=== PATIENT | female | born 1970 | race Caucasian/White ===

== ENCOUNTER 2016-09-07 12:03 | Emergency (ER) | payer MEDICAID ==
[~2016-09-07] VITALS: Ht 157.5 cm; Wt 77.1 kg
[~2016-09-07 12:03] MED LIST: MEDR10TA10 PO
[2016-09-07 12:11] VITALS: BP 126/71
[2016-09-07 12:30] LABS: KETONES,URINE Negative (NEGATIVE); LEUKOCYTE ESTERASE ,URINE Large (NEGATIVE)
[2016-09-07 12:31] LABS: ADD UA MICROSCOPIC YES
[2016-09-07 13:08] LABS: ADD URINE CULTURE YES
== END 2016-09-07 12:47 | disposition home or self-care (01) ==
LOC: ER 12:06
DX: N39.0 Urinary tract infection, site not specified (principal); Z90.710 Acquired absence of both cervix and uterus
CPT/HCPCS: 81001; 87086; 99284; A4606; Z7610; 81000-TC

== ENCOUNTER 2016-10-15 12:23 | Inpatient (IN) | payer MEDICAID ==
[~2016-10-15] VITALS: Ht 160 cm; Wt 81.7 kg
--- NOTE | 2016-10-15 12:24 | NUR ---
PT C/O LEFT LOWER ABD PAIN AND FEVER X 3 DAYS, ALSO C/O RIGHT EARACHE. TOOK MOTRIN WITH SOME RELIEF. PLACED ON MONITOR. VSS.
[2016-10-15] MEDS ORDERED: ONDANSETRON HCL/PF 4 MG/2 ML VIAL IVP ONE (13:00)
[2016-10-15] MEDS ORDERED: MORPHINE SULFATE INJ 2 MG/ML DISP.SYRIN IV ONE (13:00)
[2016-10-15] MEDS ORDERED: IV NS 0.9% 1,000 ML BAG IV ONE ×2 (13:00→15:00)
--- NOTE | 2016-10-15 13:00 | NUR ---
PT TAKEN TO CT
[2016-10-15 13:14] LABS: APPEARANCE,URINE Clear (CLEAR); BILIRUBIN,URINE Negative (NEGATIVE); BLOOD, URINE Large Ery/uL (NEGATIVE); COLOR,URINE Yellow (YELLOW); KETONES,URINE Negative (NEGATIVE); LEUKOCYTE ESTERASE ,URINE Negative (NEGATIVE); NITRITE, URINE Negative (NEGATIVE); PH,URINE 6.5 (5.0-8.0); PROTEIN,URINE Negative (NEGATIVE); UGLUCOSE Negative (NEGATIVE); UROBILINOGEN,URINE 0.2 EU/dL (0.2)
[2016-10-15 13:25] LABS: BASOPHILS % (AUTO) 0.3 % (0.0-2.0); EOSINOPHILS % (AUTO) 0.4 % (0.0-6.0); HEMATOCRIT 37 % (33-45); HEMOGLOBIN 12.6 g/dL (11.5-14.8); LYMPHOCYTES # (AUTO) 1.5 /CMM (0.8-4.8); LYMPHOCYTES % (AUTO) 17.9 % (20.0-44.0); MEAN CORPUSCULAR HEMOGLOBIN 29 PG (26.0-33.0); MEAN CORPUSCULAR HGB CONC 34 g/dl (31.0-36.0); MEAN CORPUSCULAR VOLUME 86 fL (82-100); MONOCYTES # (AUTO) 0.9 /CMM (0.1-1.30); MONOCYTES % (AUTO) 10.6 % (2.0-12.0); NEUTROPHILS # (AUTO) 6.1 /CMM (1.8-8.9); NEUTROPHILS % (AUTO) 70.8 % (43.0-81.0); PLATELET COUNT (AUTO) 209 /CMM (150-450); RDW COEFFICIENT OF VARIATION 12.9 (11.5-15.0); RED BLOOD CELL COUNT(AUTO) 4.34 MIL/uL (4.0-5.2); WHITE BLOOD COUNT (AUTO) 8.5 K/uL (4.3-11.0)
[2016-10-15 13:26] LABS: ALBUMIN 3.5 g/dL (3.4-5.0); BILIRUBIN,DIRECT 0.1 mg/dL (0.0-0.2); BILIRUBIN,TOTAL 0.4 mg/dL (0.2-1.0); CALCIUM, SERUM 8.9 mg/dL (8.5-10.1); CREATININE 0.5 mg/dL (0.6-1.3); POTASSIUM 3.9 mmol/L (3.5-5.1)
[2016-10-15] MEDS ORDERED: IV NS 0.9% 1,000 ML ONE ×2 (13:31→14:51)
[2016-10-15] MEDS ORDERED: ONDANSETRON HCL/PF 4 MG/2 ML VIAL ONE (13:31)
[2016-10-15] MEDS ORDERED: IV SET PRIMARY PUMP SET 1 EA INFUS.SET MC ONE ×3 (13:31→17:37)
[2016-10-15] MEDS ORDERED: MORPHINE SULFATE INJ 4 MG/ML DISP.SYRIN ONE (13:31)
[2016-10-15 13:37] LABS: LACTIC ACID 0.6 mmol/L (0.4-2.0)
[2016-10-15] MEDS ORDERED: IOHEXOL-300 100 ML VIAL IV ONE (13:38)
[2016-10-15] MEDS ORDERED: CT SWABBABLE VALVE TRANS SET 1 EA INFUS.SET MC ONE (13:38)
[2016-10-15] MEDS ORDERED: IV NS 0.9% 250 ML IV ONE ×2 (13:38→17:38)
--- NOTE | 2016-10-15 13:38 | NUR ---
RAC #18 IV ACCESS
[2016-10-15 13:44] LABS: ADD URINE CULTURE NO; BACTERIA,URINE Few /HPF (None Seen); SQUAMOUS EPITHELIAL CELL,UR Few /HPF (None Seen)
--- NOTE | 2016-10-15 13:55 | NUR ---
PT TAKEN TO CT VIA WHEELCHAIR
--- NOTE | 2016-10-15 14:42 | NUR ---
CALLED [facility] COORDIN[employer] SURGEON DR. WILLIS LEFT VOICEMAIL, AWAITING FOR CALL BACK.
[2016-10-15] MEDS ORDERED: IV NS 0.9% 500 ML IV ONE (14:51)
--- NOTE | 2016-10-15 14:56 | NUR ---
DR KINSEY ON THE PHONE WITH GENERAL SURGEON DR CARRILLO
[2016-10-15] MEDS ORDERED: PIPERACILLIN /TAZOBACTAM 3.375 G in IV D5W 50 ML IV ONE (15:00)
--- NOTE | 2016-10-15 15:03 | NUR ---
PAGED [employer] DEVELOPER PANEL DR. MARY LOU FAROOQ
--- NOTE | 2016-10-15 15:08 | NUR ---
DR KINSEY ON THE PHONE WITH OB MANI LITTLEJOHN
[2016-10-15] MEDS ORDERED: MAGNESIUM HYDROXIDE 30 ML UDC PO PRN (15:30)
[2016-10-15] MEDS ORDERED: MAG HYDROX/AL HYDROX/SIMETH 30 ML UDC PO PRN (15:30)
[2016-10-15] MEDS ORDERED: Z GUARD REMEDY 2 OZ OINT TP PRN (15:30)
[2016-10-15] MEDS ORDERED: ONDANSETRON HCL/PF 4 MG/2 ML VIAL IVP PRN (15:30)
--- NOTE | 2016-10-15 16:09 | NUR ---
GAVE REPORT TO ABIODUN DE LEON MEDSUR 205
--- NOTE | 2016-10-15 16:20 | NUR ---
WOODYARD CRANE OPERATOR MS NOTES: PT ALERT AND ORIENTED X4. BED IN LOW POSITION, CALL LIGHT IN REACH. PT C/O HEADACHE PAIN 01/28. PT SITTING UP AND EATING DINNER. PAIN MEDICATION GIVEN : NORCO 5/325MG 1 TAB . SKIN IS INTACT. PT AMBULATORY. PT SHOWS NO SIGNS AND SYMPTOMS OF SOB AND DISTRESS. DR. BARRETO AWARE OF ADMISSION.
[2016-10-15] MEDS: HYDROCODONE/APAP 5/325MG 1 EACH TABLET PO PRN (16:44)
[2016-10-15] MEDS ORDERED: PIPERACILLIN /TAZOBACTAM 3.375 G in IV D5W 50 ML IV SCH (17:00)
[2016-10-15 17:31] VITALS: BP 144/95
[2016-10-15] MEDS ORDERED: SECONDARY IV SET 1 EA INFUS.SET MC ONE (17:37)
[2016-10-15] MEDS: PIPERACILLIN /TAZOBACTAM 3.375 G in IV D5W 50 ML IV SCH ×2 (17:43→23:43)
--- NOTE | 2016-10-15 19:04 | NUR ---
ms rn closing notes All needs provided, attended, and anticipated. No SOB or distress noted. Kept patient clean and comfortable in bed, call light with in patient reach. Endorsed to next shift RN to continue care. Will continue to monitor accordingly.
--- NOTE | 2016-10-15 19:45 | NUR ---
MS RN NOTE: PATIENT RESTING IN BED, NO ACUTE DISTRESS NOTED. BREATHING EVEN AND UNLABORED, NO SOB NOTED. IV TO RAC IN PLACE. BED LOCKED AND IN LOWEST POSITION, CALL LIGHT IN REACH. WILL CONTINUE TO MONITOR.
[2016-10-15 20:00] VITALS: BP 108/73
[2016-10-15] MEDS ORDERED: ZOLPIDEM TARTRATE 5 MG TABLET PO PRN (22:00)
[2016-10-15] MEDS: ACETAMINOPHEN 325 MG TABLET PO PRN (23:46)
--- NOTE | 2016-10-16 03:00 | NUR ---
MS RN NOTE: PATIENT SLEEPING IN BED, NO ACUTE DISTRESS NOTED. BREATHING EVEN AND UNLABORED, NO SOB NOTED. BED LOCKED AND IN LOWEST POSITION, CALL LIGHT IN REACH, WILL CONTINUE TO MONITOR.
[2016-10-16] MEDS: PIPERACILLIN /TAZOBACTAM 3.375 G in IV D5W 50 ML IV SCH ×4 (05:41→22:03)
--- NOTE | 2016-10-16 06:05 | NUR ---
MS RN NOTE: PATIENT RESTING IN BED, NO ACUTE DISTRESS NOTED. BREATHING EVEN AND UNLABORED, NO SOB NOTED. IV TO RAC IN PLACE. BED LOCKED AND IN LOWEST POSITION, CALL LIGHT IN REACH. WILL ENDORSE TO DAY NURSE TO CONTINUE WITH PLAN OF CARE.
[2016-10-16 06:54] LABS: BASOPHILS % (AUTO) 0.2 % (0.0-2.0); EOSINOPHILS % (AUTO) 0.3 % (0.0-6.0); HEMATOCRIT 38 % (33-45); HEMOGLOBIN 12.7 g/dL (11.5-14.8); LYMPHOCYTES # (AUTO) 1.6 /CMM (0.8-4.8); LYMPHOCYTES % (AUTO) 20.5 % (20.0-44.0); MEAN CORPUSCULAR HEMOGLOBIN 28 PG (26.0-33.0); MEAN CORPUSCULAR HGB CONC 33 g/dl (31.0-36.0); MEAN CORPUSCULAR VOLUME 84 fL (82-100); MONOCYTES # (AUTO) 0.8 /CMM (0.1-1.30); MONOCYTES % (AUTO) 10.2 % (2.0-12.0); NEUTROPHILS # (AUTO) 5.3 /CMM (1.8-8.9); NEUTROPHILS % (AUTO) 68.8 % (43.0-81.0); PLATELET COUNT (AUTO) 228 /CMM (150-450); RDW COEFFICIENT OF VARIATION 13.5 (11.5-15.0); RED BLOOD CELL COUNT(AUTO) 4.53 MIL/uL (4.0-5.2); WHITE BLOOD COUNT (AUTO) 7.7 K/uL (4.3-11.0)
[2016-10-16 07:13] LABS: ALBUMIN 3.3 g/dL (3.4-5.0); BILIRUBIN,TOTAL 0.4 mg/dL (0.2-1.0); CALCIUM, SERUM 9.1 mg/dL (8.5-10.1); CREATININE 0.6 mg/dL (0.6-1.3); MAGNESIUM 1.7 mg/dL (1.8-2.4); PHOSPHORUS 4.7 mg/dL (2.5-4.9); POTASSIUM 4.1 mmol/L (3.5-5.1); TOTAL PROTEIN, SERUM 7.1 g/dL (6.4-8.2)
--- NOTE | 2016-10-16 07:30 | NUR ---
MS RN AM NOTE: PATIENT IN BED, AAO X 4, KOREAN SPEAKING, NOT IN ANY DISTRESS, ON ROOM AIR, C/O 01/28 LEFT ABDOMINAL PAIN, WILL ADMINISTER PAIN MEDS ORDERED, IV TO RAC G18 IN PLACE, SITE CLEAR, AMBULATORY. BED LOCKED AND IN LOWEST POSITION, CALL LIGHT IN REACH. WILL CONTINUE TO MONITOR.
[2016-10-16 08:00] VITALS: BP 101/60
[2016-10-16] MEDS: HYDROCODONE/APAP 5/325MG 1 EACH TABLET PO PRN (08:25)
[2016-10-16] MEDS: PANTOPRAZOLE 40 MG TABLET.DR PO SCH (08:25)
--- NOTE | 2016-10-16 09:30 | NUR ---
MS RN NOTES ADMINISTERED DUE MEDS.
--- NOTE | 2016-10-16 10:38 | NUR ---
MS RN NOTES ZOSYN IV STARTED.
[2016-10-16] MEDS ORDERED: SECONDARY IV SET 1 EA INFUS.SET MC ONE (12:17)
[2016-10-16] MEDS: Magnesium 1GM/D5W 100ML PREMIX 100 ML IV SCH ×2 (12:25→13:44)
--- NOTE | 2016-10-16 12:25 | NUR ---
MS RN NOTES MAGNESIUM IV BAG #1 STARTED.
--- NOTE | 2016-10-16 13:44 | NUR ---
MS RN NOTES MAGNESIUM IV BAG #2 STARTED.NOT ADMINISTERED ON TIME. PT OOB TO BATHROOM
[2016-10-16] MEDS: ACETAMINOPHEN 325 MG TABLET PO PRN (15:14)
[2016-10-16] MEDS: MORPHINE SULFATE INJ 2 MG/ML DISP.SYRIN IV PRN ×2 (15:38→22:02)
[2016-10-16 16:00] VITALS: BP 120/73
--- NOTE | 2016-10-16 16:30 | NUR ---
MS RN NOTES ZOSYN IV STARTED.
--- NOTE | 2016-10-16 17:07 | NUR ---
MS RN NOTES DR. HOMA BRAMBILA NOTIFIED RE PT'S COMPLAINT OF CONGESTION AND WANTS SOME BREATHING TREATMENT. O2 SAT 97 % AT ROOM AIR.
[2016-10-16 18:00] VITALS: BP 120/73
[2016-10-16] MEDS ORDERED: ALBUTEROL FS 2.5 MG/3 ML VIAL.NEB NEB PRN (18:00)
[2016-10-16] MEDS ORDERED: IPRATROPIUM NEB FS 0.5 MG/2.5 ML AMPUL.NEB NEB PRN (18:00)
--- NOTE | 2016-10-16 18:55 | NUR ---
MS RN NOTE: PATIENT RESTING IN BED, NO ACUTE DISTRESS NOTED. BREATHING EVEN AND UNLABORED, NO SOB NOTED. IV TO RAC IN PLACE. BED LOCKED AND IN LOWEST POSITION, CALL LIGHT IN REACH. WILL ENDORSE TO NIGHT NURSE TO CONTINUE WITH PLAN OF CARE.
--- NOTE | 2016-10-16 19:30 | NUR ---
RN NOTE; RECEIVED PT IN BED AWAKE AND ALERT. BREATHING EVENLY. NO SOB. NO DISTRESS. W/ MILD H/A . HOWEVER DOESN'T WANT TO TAKE ANY PAIN MEDICATION AT THIS TIME. NEEDS ATTENDED. CALL LIGHT WITHIN REACH. WILL CONT TO MONITOR
[2016-10-16 20:00] VITALS: BP 115/77
[2016-10-17] MEDS: HYDROCODONE/APAP 5/325MG 1 EACH TABLET PO PRN (05:23)
[2016-10-17] MEDS: PIPERACILLIN /TAZOBACTAM 3.375 G in IV D5W 50 ML IV SCH ×2 (05:23→10:44)
--- NOTE | 2016-10-17 05:23 | NUR ---
norco given for c/o h/a . will cont to monitor
--- NOTE | 2016-10-17 05:59 | NUR ---
mom given for c/o constipation. will cont to monitor
--- NOTE | 2016-10-17 06:34 | NUR ---
RN NOTE; PT IN BED AWAKE AND ALERT, BREATHING EVENLY. NO SOB NO DISTRESS . SKIN WARM AND DRY . NO ACUTE DISTRESS DURING THE NIGHT . VS : WNL. PAIN MEDICATION GIVEN ORDERED PER PT'S REQUEST. NEEDS ATTENDED. BED LOW LOCKED . SRX2. CALL LIGHT WITHIN REACH. WILL CONT TO MONITOR AND WILL ENDORSE TO AM SHIFT FOR HELDER.
[2016-10-17 07:03] LABS: CALCIUM, SERUM 8.8 mg/dL (8.5-10.1); CREATININE 0.6 mg/dL (0.6-1.3); MAGNESIUM 2.1 mg/dL (1.8-2.4)
[2016-10-17 07:21] LABS: POTASSIUM 3.9 mmol/L (3.5-5.1)
--- NOTE | 2016-10-17 07:30 | NUR ---
MS RN AM NOTE: PATIENT IN BED, AAO X 4, DANISH SPEAKING, NOT IN ANY DISTRESS, ON ROOM AIR, C/O 10 LEFT ABDOMINAL PAIN, WILL ADMINISTER PAIN MEDS ORDERED, IV TO RT HAND G22 IN PLACE, SITE CLEAR, AMBULATORY. BED LOCKED AND IN LOWEST POSITION, CALL LIGHT IN REACH. WILL CONTINUE TO MONITOR.
[2016-10-17] MEDS: PANTOPRAZOLE 40 MG TABLET.DR PO SCH (07:55)
[2016-10-17 08:00] VITALS: BP 104/75
[2016-10-17 08:41] VITALS: BP 104/75
--- NOTE | 2016-10-17 09:30 | NUR ---
MS RN NOTES ADMINISTERED DUE MEDS.
--- NOTE | 2016-10-17 10:44 | NUR ---
MS RN NOTES ZOSYN IV STARTED.
--- NOTE | 2016-10-17 11:48 | NUR ---
MS RN NOTES DR.TIM BRAMBILA AT BEDSIDE.
[2016-10-17] MEDS ORDERED: SENN8.6T6 PO (11:57)
[2016-10-17] MEDS ORDERED: ACET-907 PO (11:57)
--- NOTE | 2016-10-17 15:17 | NUR ---
MS RN NOTES PATIENT DISCHARGED TODAY TO HOME TODAY PER MD IN STABLE CONDITION. PROVIDED DC INSTRUCTIONS, MED RECON LIST AND PRESCRIPTION, HEALTH TEACHINGS. PATIENT TO FOLLOW UP WITH PCP IN 1-2 WEEKS AND WILL MAKE OWN APPOINTMENT. RT HAND IV ACCESS REMOVED, NO BLEEDING, DRESSING IN PLACE. BELONGINGS CHECKED AND RETURNED. ALL PAPERWORKS SIGNED. WILL BE PICKED UP BY SON TO GO HOME VIA PRIVATE CAR.
[2016-10-17 15:30] VITALS: BP 104/75
--- NOTE | 2016-10-17 15:30 | NUR ---
MS RN NOTES PATIENT PICKED UP BY SON. ACCOMPANIED BY ALIS GLORIA TO LOBBY VIA WHEELCHAIR.
== END 2016-10-17 15:30 | disposition home or self-care (01) | DRG 532 ==
LOC: ER 12:25 → MEDSG2 15:59
PROVIDERS: ADMIT Family Medicine; ATTEND Family Medicine
DX: N83.202 Unspecified ovarian cyst, left side (principal); K56.7 Ileus, unspecified; E83.42 Hypomagnesemia; E88.09 Other disorders of plasma-protein metabolism, not elsewhere classified; Z90.710 Acquired absence of both cervix and uterus
CPT/HCPCS: 36415; 76856-TC; 80048-TC; 80053-TC; 80076-TC; 81000-TC; 83605-TC; 83690-TC; 83735-TC; 84100-TC; 85025-TC; 87040-TC; 87081-TC; 87086-TC; A4606; J2270; J2405; J2543; J3475; J7030; J7040; J7050; J7060; Q9967; Z7610

== ENCOUNTER 2017-11-12 04:47 | Emergency (ER) | payer MEDICAID ==
[~2017-11-12] VITALS: Ht 160 cm; Wt 68.0 kg
[2017-11-12 04:47] VITALS: BP 148/71
[~2017-11-12 04:47] MED LIST changes: +ACET-907 PO; -MEDR10TA10 PO; +SENN-167 PO
[2017-11-12] MEDS ORDERED: predniSONE 20 MG TABLET ONE (05:42)
[2017-11-12] MEDS ORDERED: predniSONE 20 MG TABLET PO ONE (06:00)
== END 2017-11-12 05:47 | disposition home or self-care (01) ==
LOC: ER 04:47
DX: J02.9 Acute pharyngitis, unspecified (principal); J40 Bronchitis, not specified as acute or chronic; Z90.710 Acquired absence of both cervix and uterus; Z85.42 Personal history of malignant neoplasm of other parts of uterus
CPT/HCPCS: 71045; 99283; A4606; J7512; Z7610

== ENCOUNTER 2018-03-26 17:43 | Emergency (ER) | payer MEDICAID ==
[~2018-03-26] VITALS: Ht 160 cm; Wt 73.5 kg
--- NOTE | 2018-03-26 18:00 | NUR ---
AAOX3, CAME TO ER C/O ON/OFF EPIGASTRIC PAIN ASSOCIATED WITH NAUSEA X YESTERDAY, WORSE WHEN PATIENT IS HUNGRY. RESP IS EVEN AND UNLABORED WITH NAD NOTED. AWAITING MD FOR EVAL.
[2018-03-26] MEDS ORDERED: MORPHINE SULFATE INJ 2 MG/ML DISP.SYRIN IV ONE (18:30)
[2018-03-26] MEDS ORDERED: ONDANSETRON HCL/PF 4 MG/2 ML VIAL IVP ONE (18:30)
[2018-03-26] MEDS ORDERED: IV NS 0.9% 1,000 ML BAG IV ONE (18:30)
[2018-03-26] MEDS ORDERED: ONDANSETRON HCL/PF 4 MG/2 ML VIAL ONE (18:41)
[2018-03-26] MEDS ORDERED: MORPHINE SULFATE INJ 4 MG/ML DISP.SYRIN ONE (18:41)
[2018-03-26 18:55] LABS: BASOPHILS # (AUTO) 0.2 /CMM (0.0-0.2); BASOPHILS % (AUTO) 1.1 % (0.0-2.0); EOSINOPHILS % (AUTO) 1.3 % (0.0-6.0); HEMATOCRIT 41 % (33-45); HEMOGLOBIN 13.7 g/dL (11.5-14.8); LYMPHOCYTES # (AUTO) 3.2 /CMM (0.8-4.8); LYMPHOCYTES % (AUTO) 20.3 % (20.0-44.0); MEAN CORPUSCULAR HEMOGLOBIN 30 PG (26.0-33.0); MEAN CORPUSCULAR HGB CONC 33 g/dl (31.0-36.0); MEAN CORPUSCULAR VOLUME 90 fL (82-100); MONOCYTES # (AUTO) 0.6 /CMM (0.1-1.30); MONOCYTES % (AUTO) 4.1 % (2.0-12.0); NEUTROPHILS # (AUTO) 11.4 /CMM (1.8-8.9); NEUTROPHILS % (AUTO) 73.2 % (43.0-81.0); PLATELET COUNT (AUTO) 195 /CMM (150-450); RED BLOOD CELL COUNT(AUTO) 4.59 MIL/uL (4.0-5.2); WHITE BLOOD COUNT (AUTO) 15.6 K/uL (4.3-11.0)
[2018-03-26 18:56] LABS: APPEARANCE,URINE Clear (CLEAR); BILIRUBIN,URINE Negative (NEGATIVE); BLOOD, URINE Large Ery/uL (NEGATIVE); COLOR,URINE Yellow (YELLOW); KETONES,URINE Negative (NEGATIVE); LEUKOCYTE ESTERASE ,URINE Small (NEGATIVE); NITRITE, URINE Negative (NEGATIVE); PROTEIN,URINE Trace mg/dl (NEGATIVE); UGLUCOSE Negative (NEGATIVE); UROBILINOGEN,URINE 0.2 EU/dL (0.2)
--- NOTE | 2018-03-26 19:00 | NUR ---
Report given to HALEY Johnson for HELDER.
[2018-03-26 19:06] LABS: TROPONIN I < 0.017 ng/mL (0.00-0.056)
[2018-03-26 19:13] LABS: WBC,URINE TOO NUMEROUS TO COUN /HPF (0-3)
[2018-03-26 19:14] LABS: BACTERIA,URINE Moderate /HPF (None Seen); MUCUS,URINE Few /LPF (None Seen); SQUAMOUS EPITHELIAL CELL,UR Many /HPF (None Seen); URINE AMORPHOUS URATE Few /HPF (None Seen)
[2018-03-26 19:15] LABS: ALANINE AMINOTRANSFERASE 18 U/L (12-78); ALBUMIN 3.2 g/dL (3.4-5.0); ALKALINE PHOSPHATASE 56 U/L (46-116); ASPARTATE AMINOTRANSFERASE 12 U/L (15-37); BILIRUBIN,DIRECT 0.1 mg/dL (0.0-0.2); BILIRUBIN,TOTAL 0.4 mg/dL (0.2-1.0); CALCIUM, SERUM 8.8 mg/dL (8.5-10.1); CARBON DIOXIDE 26 mmol/L (21-32); CHLORIDE 104 mmol/L (98-107); CREATININE 0.6 mg/dL (0.6-1.3); GLUCOSE 124 mg/dL (74-106); LIPASE 191 U/L (73-393); POTASSIUM 3.5 mmol/L (3.5-5.1); SODIUM SERUM 138 mmol/L (136-145); TOTAL PROTEIN, SERUM 6.6 g/dL (6.4-8.2); UREA NITROGEN, BLOOD 10 mg/dL (7-18)
[2018-03-26] MEDS ORDERED: CEFTRIAXONE 1 G VIAL ONE (19:56)
[2018-03-26] MEDS ORDERED: LIDOCAINE VISCOUS 2% UD 15 ML UDC ONE (19:57)
[2018-03-26] MEDS ORDERED: MAG HYDROX/AL HYDROX/SIMETH 30 ML UDC ONE (19:57)
[2018-03-26] MEDS ORDERED: LIDOCAINE VISCOUS 2% UD 15 ML UDC MM ONE (20:00)
[2018-03-26] MEDS ORDERED: MAG HYDROX/AL HYDROX/SIMETH 30 ML UDC PO ONE (20:00)
[2018-03-26] MEDS ORDERED: CEFTRIAXONE 1GM BAG (ER ONLY) 1 GM/50 ML PIGGYBACK IV ONE (20:00)
[2018-03-26 21:10] VITALS: BP 127/88
== END 2018-03-26 21:10 | disposition home or self-care (01) ==
LOC: ER 17:44
DX: N39.0 Urinary tract infection, site not specified (principal); R31.9 Hematuria, unspecified; F10.10 Alcohol abuse, uncomplicated; Y90.9 Presence of alcohol in blood, level not specified; Z85.42 Personal history of malignant neoplasm of other parts of uterus; Z90.710 Acquired absence of both cervix and uterus
CPT/HCPCS: 36415; 71045; 80048; 80076; 81001; 83690; 84484; 84703; 85025; 87077; 87086; 87186; 93005; 96365; 96375; 99285; A4216; A4606; J0696; J2270; J2405; J7030; Z7610; 81000-TC

== ENCOUNTER 2018-08-19 18:03 | Emergency (ER) | payer MEDICAID ==
[~2018-08-19] VITALS: Ht 160 cm; Wt 69.9 kg
[2018-08-19 18:03] VITALS: BP 111/75
[~2018-08-19 18:03] MED LIST changes: -SENN-167 PO; +SENN-168 PO
[2018-08-19 19:37] LABS: APPEARANCE,URINE Slightly Cloudy (CLEAR); BILIRUBIN,URINE SMALL (NEGATIVE); BLOOD, URINE Large Ery/uL (NEGATIVE); COLOR,URINE Amber (YELLOW); KETONES,URINE Trace (NEGATIVE); LEUKOCYTE ESTERASE ,URINE Negative (NEGATIVE); NITRITE, URINE Negative (NEGATIVE); PROTEIN,URINE 100 mg/dl (NEGATIVE); UGLUCOSE Negative (NEGATIVE); UROBILINOGEN,URINE 0.2 EU/dL (0.2)
[2018-08-19 19:50] LABS: BACTERIA,URINE Rare /HPF (None Seen); SQUAMOUS EPITHELIAL CELL,UR Few /HPF (None Seen); WBC,URINE NONE SEEN /HPF (0-3)
[2018-08-19 20:00] LABS: BASOPHILS % (AUTO) 0.5 % (0.0-2.0); EOSINOPHILS % (AUTO) 0.8 % (0.0-6.0); HEMATOCRIT 34 % (33-45); HEMOGLOBIN 11.7 g/dL (11.5-14.8); LYMPHOCYTES # (AUTO) 1.2 /CMM (0.8-4.8); MEAN CORPUSCULAR HGB CONC 34 g/dl (31.0-36.0); MEAN CORPUSCULAR VOLUME 89 fL (82-100); MONOCYTES # (AUTO) 0.7 /CMM (0.1-1.30); MONOCYTES % (AUTO) 10.6 % (2.0-12.0); NEUTROPHILS # (AUTO) 4.6 /CMM (1.8-8.9); NEUTROPHILS % (AUTO) 70.1 % (43.0-81.0); PLATELET COUNT (AUTO) 304 /CMM (150-450); RED BLOOD CELL COUNT(AUTO) 3.86 MIL/uL (4.0-5.2); WHITE BLOOD COUNT (AUTO) 6.6 K/uL (4.3-11.0)
[2018-08-19 20:09] LABS: CALCIUM, SERUM 8.6 mg/dL (8.5-10.1); CREATININE 0.6 mg/dL (0.6-1.3); POTASSIUM 3.9 mmol/L (3.5-5.1)
[2018-08-19 20:15] LABS: ALBUMIN 2.6 g/dL (3.4-5.0); BILIRUBIN,TOTAL 0.3 mg/dL (0.2-1.0); TOTAL PROTEIN, SERUM 6.2 g/dL (6.4-8.2)
== END 2018-08-19 22:57 | disposition home or self-care (01) ==
LOC: ER 18:03
DX: N61.0 Mastitis without abscess (principal); N70.11 Chronic salpingitis; R31.9 Hematuria, unspecified; F10.10 Alcohol abuse, uncomplicated; Y90.9 Presence of alcohol in blood, level not specified; Z87.11 Personal history of peptic ulcer disease; Z85.54 Personal history of malignant neoplasm of ureter; Z90.710 Acquired absence of both cervix and uterus
CPT/HCPCS: 36415; 71045-TC; 76856-TC; 80053-TC; 81000-TC; 85025-TC

== ENCOUNTER 2018-10-02 18:29 | Emergency (ER) | payer MEDICAID ==
[~2018-10-02] VITALS: Ht 160 cm; Wt 69.9 kg
[2018-10-02 18:29] VITALS: BP 126/56
[2018-10-02] MEDS ORDERED: PENICILLIN G BENZATHINE 2.4 MMU/4 ML ML IM ONE ×2 (19:18→19:30)
== END 2018-10-02 19:32 | disposition home or self-care (01) ==
LOC: ER 18:37
DX: A53.0 Latent syphilis, unspecified as early or late (principal); R05 Cough; F10.10 Alcohol abuse, uncomplicated; Y90.9 Presence of alcohol in blood, level not specified; Z85.42 Personal history of malignant neoplasm of other parts of uterus; Z90.710 Acquired absence of both cervix and uterus
CPT/HCPCS: 96372; 99283; A4606; J0558

== ENCOUNTER 2019-02-01 16:26 | Emergency (ER) | payer MEDICAID ==
[~2019-02-01] VITALS: Ht 162.6 cm; Wt 70.3 kg
[2019-02-01 16:29] VITALS: BP 117/65
[2019-02-01] MEDS ORDERED: PHENAZOPYRIDINE HCL 200 MG TABLET PO ONE (17:00)
[2019-02-01 17:05] LABS: APPEARANCE,URINE Clear (CLEAR); BILIRUBIN,URINE Negative (NEGATIVE); BLOOD, URINE Moderate Ery/uL (NEGATIVE); COLOR,URINE Yellow (YELLOW); KETONES,URINE Negative (NEGATIVE); LEUKOCYTE ESTERASE ,URINE Negative (NEGATIVE); NITRITE, URINE Negative (NEGATIVE); PROTEIN,URINE Negative (NEGATIVE); UGLUCOSE Negative (NEGATIVE); UROBILINOGEN,URINE 0.2 EU/dL (0.2)
[2019-02-01] MEDS ORDERED: PHENAZOPYRIDINE HCL 200 MG TABLET ONE (17:10)
[2019-02-01 17:19] LABS: BACTERIA,URINE Few /HPF (None Seen); SQUAMOUS EPITHELIAL CELL,UR Few /HPF (None Seen); WBC,URINE 0-2 /HPF (0-3)
[2019-02-01 17:21] LABS: YEAST,URINE Few /HPF (None Seen)
== END 2019-02-01 17:47 | disposition home or self-care (01) ==
LOC: ER 16:27
DX: R30.0 Dysuria (principal); F10.10 Alcohol abuse, uncomplicated; Y90.9 Presence of alcohol in blood, level not specified; Z90.710 Acquired absence of both cervix and uterus; Z85.42 Personal history of malignant neoplasm of other parts of uterus
CPT/HCPCS: 81000-TC; 84703-TC; 87086-TC; 87186-TC

== ENCOUNTER 2019-09-28 11:33 | Emergency (ER) | payer MEDICAID ==
[~2019-09-28] VITALS: Ht 167.6 cm; Wt 61.2 kg
[~2019-09-28 11:33] MED LIST changes: -SENN-168 PO; +SENN-261 PO
[2019-09-28 11:35] VITALS: BP 131/69
[2019-09-28] MEDS ORDERED: IBUPROFEN 600 MG TABLET PO ONE ×2 (12:47→13:00)
--- NOTE | 2019-09-28 12:57 | NUR ---
pt requested pain meds before discharge. verbal order for motrin 600mg obtained from ferny [facility].
== END 2019-09-28 13:13 | disposition home or self-care (01) ==
LOC: ER 11:38
DX: S83.8X1A Sprain of other specified parts of right knee, initial encounter (principal); M25.461 Effusion, right knee; Z85.41 Personal history of malignant neoplasm of cervix uteri; Z90.710 Acquired absence of both cervix and uterus; Z85.42 Personal history of malignant neoplasm of other parts of uterus; W01.0XXA Fall on same level from slipping, tripping and stumbling without subsequent striking against object, initial encounter; Y93.89 Activity, other specified; Y92.89 Other specified places as the place of occurrence of the external cause; Y99.8 Other external cause status
CPT/HCPCS: 73564-TC

== ENCOUNTER 2020-02-09 14:11 | Emergency (ER) | payer MEDICAID ==
[~2020-02-09] VITALS: Ht 160 cm; Wt 77.1 kg
[2020-02-09 14:20] VITALS: BP 156/97
== END 2020-02-09 15:49 | disposition home or self-care (01) ==
LOC: ER 14:18
DX: M54.2 Cervicalgia (principal); Z90.710 Acquired absence of both cervix and uterus; Z98.890 Other specified postprocedural states; Z85.42 Personal history of malignant neoplasm of other parts of uterus; V49.49XA Driver injured in collision with other motor vehicles in traffic accident, initial encounter; Y93.89 Activity, other specified; Y92.488 Other paved roadways as the place of occurrence of the external cause; Y99.8 Other external cause status
CPT/HCPCS: 72125-TC

== ENCOUNTER 2022-12-10 14:45 | Emergency (ER) | payer MEDICAID ==
[~2022-12-10] VITALS: Ht 160 cm; Wt 76.7 kg
--- NOTE | 2022-12-10 16:23 | NUR ---
dr stinson at bedside for eval.
[2022-12-10] MEDS ORDERED: MAG355OR18 PO (17:26)
[2022-12-10] MEDS ORDERED: ONDA4TAB5 PO (17:26)
[2022-12-10] MEDS ORDERED: DEXAMETHASONE SOD PHOSPHATE 10 MG/ML VIAL ONE (17:50)
[2022-12-10] MEDS: DEXAMETHASONE SOD PHOSPHATE 4 MG/ML VIAL IM ONE (17:54)
--- NOTE | 2022-12-10 17:58 | NUR ---
medicated as ordered. pt provided w/ yasemin wrap. d/c home in stable
[2022-12-10 17:59] VITALS: BP 146/87
== END 2022-12-10 17:59 | disposition home or self-care (01) ==
LOC: ER 14:51
DX: M25.561 Pain in right knee (principal); M19.90 Unspecified osteoarthritis, unspecified site; Z90.710 Acquired absence of both cervix and uterus
CPT/HCPCS: 99283; 96372; 73564; J1100